=== PATIENT | male | born 1990 | race Caucasian/White ===

== ENCOUNTER 2021-04-13 10:56 | Emergency (ER) | payer OTHER ==
[~2021-04-13 10:56] MED LIST: BENTYL 20MG TAB20 MG PO; PREDNISONE10 M1 PO; PRILOSEC10 M1 PO; VALIUM 2 MG TAB2 MG PO; VALIUM 5 MG TAB5 MG PO; ZOFRAN4 MG PO
[2021-04-13] MEDS ORDERED: MEDROL DOSEPAK 24 MG PO (12:15)
[2021-04-13] MEDS ORDERED: CYCLOBENZAPRINE10 MG PO (12:15)
== END 2021-04-13 12:21 | disposition home or self-care (01) ==
LOC: ER1 10:56
DX: M54.41 Lumbago with sciatica, right side (principal)
CPT/HCPCS: 96372; 99283; J1100; J1885

== ENCOUNTER 2021-04-18 12:32 | Emergency (ER) | payer OTHER ==
[~2021-04-18 12:32] MED LIST changes: +CYCLOBENZAPRINE10 MG PO; +MEDROL DOSEPAK 24 MG PO
[2021-04-18 13:15] LABS: HEMOGLOBIN 15.9 gm/dl (14.0-17.5); RED BLOOD COUNT 5.39 M/UL (4.20-5.50); WHITE BLOOD COUNT 10.2 K/UL (4.5-11.0)
[2021-04-18 14:06] LABS: BUN/CREATININE RATIO 14 (0-10)
== END 2021-04-18 16:12 | disposition home or self-care (01) ==
LOC: ER1 12:32
DX: K29.70 Gastritis, unspecified, without bleeding (principal); K20.90 Esophagitis, unspecified without bleeding
CPT/HCPCS: 71045; 80053; 81001; 83690; 84484; 85025; 99284